=== PATIENT | male | born 2000 | race Two or more races ===

== ENCOUNTER → 2020-09-19 | Outpatient (CLI) | payer OTHER ==
[2020-09-20 09:46] LABS: RUBELLA AB IGG-REFLAB 2.87 index (Immune >0.99); RUBEOLA (MEASLES) IGG 70.5 AU/mL (Immune >16.4)
== END | disposition home or self-care (01) ==
LOC: LABPV 09:17
PROVIDERS: ATTEND Internal Medicine
DX: Z02.1 Encounter for pre-employment examination (principal)
CPT/HCPCS: 86706; 86735; 86762; 86765; 86787

== ENCOUNTER 2022-07-19 22:56 | Emergency (ER) | payer OTHER ==
[~2022-07-19] VITALS: Ht 172.7 cm; Wt 68.6 kg
[2022-07-19] MEDS ORDERED: AMOX TR/POT CLAV 875 MG/125 MG TABLET PO ONE (23:45)
[2022-07-19] MEDS ORDERED: PERTUSS(ACELL),DIPH,TET VAC/PF 0.5 ML SYRINGE IM. ONE (23:45)
[2022-07-19] MEDS ORDERED: BACITRACIN 0.9 GM PACKET OINTMENT TP ONE (23:45)
[2022-07-19] MEDS ORDERED: AMOX1TAB16 PO (23:59)
[2022-07-20 00:26] VITALS: BP 128/70
== END 2022-07-20 00:27 | disposition home or self-care (01) ==
LOC: EMS 22:57
DX: S51.851A Open bite of right forearm, initial encounter (principal); W50.3XXA Accidental bite by another person, initial encounter; Y93.89 Activity, other specified; Y92.89 Other specified places as the place of occurrence of the external cause; Y99.8 Other external cause status
CPT/HCPCS: 90471; 90715; 99283